=== PATIENT | male | born 1935 | race Caucasian/White ===

== ENCOUNTER 2017-10-03 17:54 | Emergency (ER) | payer OTHER ==
[~2017-10-03] VITALS: Ht 152.4 cm; Wt 83.8 kg
[~2017-10-03 17:54] MED LIST: AMLODIPINE BESYL5 MG PO; ARICEPT10 MG PO; ATORVASTATIN CA80 MG PO; CRESTOR40 MG PO; DONEPEZIL HCL10 MG PO; ERGOCALCIF50000 UNIT PO; FLOMAX0.4 M1 PO; FLOMAX0.4 MG PO; FUROSEMIDE20 MG PO; JANUVIA25 MG PO; KLOR-CON 1010 ME1 PO; KLOR-CON 1010 MEQ PO; KLOR-CON M1010 MEQ PO; LANTUS 10100 UNITS/ SC; LANTUS 3 M100 UNITS1 SC; LANTUS100 UNIT/1 SQ; LIPITOR40 MG PO; LIPITOR80 MG PO; LISINOPRIL10 MG PO; LISINOPRIL5 MG PO; METFORMIN HCL1000 M1 PO; METFORMIN HCL1000 MG PO; NORVASC10 M1 PO; NOVOLOG PE100 UNITS/ SC; NOVOLOG100 UNIT/2 SQ; PANTOPRAZOLE SO40 MG PO; SERTRALINE HCL100 MG PO; TYLENOL REGULA325 MG PO; VITAMIN D50000 UNI1 PO; VITAMIN D50000 UNI4 PO; ZOLOFT50 MG PO
[2017-10-03 20:20] LABS: HEMATOCRIT 32.1 % (38.0-50.0); MCV 93.9 FL (86-99); MEAN PLAT.VOLUME 8.8 uM^3 (9.0-12.4); PLATELET COUNT 231 K/uL (156-360); RBC DIS.WIDTH-SD 44.9 % (39-53); RED BLOOD COUNT 3.42 M/uL (4.00-5.50)
[2017-10-03 20:31] LABS: CHLORIDE 103 mEq/L (99-109); POTASSIUM 4.6 mEq/L (3.7-5.4); SODIUM 141 mEq/L (136-147)
[2017-10-03 20:33] LABS: GLUCOSE 52 mg/dL (70-99)
[2017-10-03 20:34] LABS: ANION GAP 12 MEQ/L (2-14)
[2017-10-03 20:35] LABS: TOTAL BILIRUBIN 0.3 mg/dL (0.0-1.0)
[2017-10-03 20:36] LABS: ALKALINE PHOSPHATASE 96 IU/L (3-129)
[2017-10-03 20:37] LABS: GFR ESTIMATE (CALCULATED) 44 mL/min/
[2017-10-03 20:38] LABS: UREA NITROGEN (BUN) 28 mg/dL (9-23)
[2017-10-03 20:42] LABS: TROP-I INTERPRETATION NEGATIVE; TROPONIN-I < 0.01 ng/mL (0.0-0.30)
[2017-10-03 22:12] LABS: ADD MIUA? YES; BILIRUBIN NEGATIVE; BLOOD NEGATIVE; COLOR YELLOW ((YELLOW)); GLUCOSE (STRIP) 50; KETONES NEGATIVE; LEUKOCYTES TRACE; NITRITE NEGATIVE; PROTEIN (STRIP) NEGATIVE; SPECIFIC GRAVITY 1.016 (1.000-1.030); UROBILINOGEN 0.2 MG/DL (0.2-1.0)
[2017-10-03 22:44] LABS: BACTERIA RARE /HPF; EPITHELIAL CELLS RARE /HPF; HYALINE CASTS 20-30 /LPF; MUCUS TRACE /LPF; RED BLOOD CELLS 0-5 /HPF (0-5); WHITE BLOOD CELLS 0-5 /HPF (0-5)
[2017-10-03 23:16] VITALS: BP 112/50
== END 2017-10-03 23:16 | disposition home or self-care (01) ==
LOC: EME 17:54
PROVIDERS: Emergency Medicine
DX: S22.41XA Multiple fractures of ribs, right side, initial encounter for closed fracture (principal); W01.0XXA Fall on same level from slipping, tripping and stumbling without subsequent striking against object, initial encounter; Y92.099 Unspecified place in other non-institutional residence as the place of occurrence of the external cause; F03.90 Unspecified dementia, unspecified severity, without behavioral disturbance, psychotic disturbance, mood disturbance, and anxiety; E11.9 Type 2 diabetes mellitus without complications; Z79.4 Long term (current) use of insulin; F32.9 Major depressive disorder, single episode, unspecified
CPT/HCPCS: 71101; 80053; 81003; 84484; 85027; 87086; 93005; 99281; 99285